=== PATIENT | male | born 1950 | race Caucasian/White ===

== ENCOUNTER 2022-11-10 09:39 | Inpatient (IN) | payer OTHER ==
[2022-11-10] MEDS ORDERED: Acetaminophen 325 MG TAB PO PRN (13:55)
[2022-11-10] MEDS ORDERED: oxyCODONE 5 MG TAB PO PRN (13:56)
[2022-11-10] MEDS ORDERED: Montelukast Sodium 10 mg Tablet PO PRN (13:56)
[2022-11-10] MEDS ORDERED: Ondansetron ODT 4 MG TAB SL PRN (13:59)
[2022-11-10] MEDS ORDERED: Senokot S 8.6-50 MG TAB PO PRN (13:59)
[2022-11-10] MEDS ORDERED: Bisacodyl 5 MG TAB PO PRN (13:59)
[2022-11-10] MEDS ORDERED: CEFAZOLIN 2 GM IVPB SCH (14:00)
[2022-11-10] MEDS ORDERED: Polyethylene Glycol OPTH DROP 15 ML BOT EA EYE PRN (16:20)
[2022-11-10] MEDS ORDERED: Diclofenac 1% 100 GM Topical GEL TP PRN (16:26)
[2022-11-10] MEDS ORDERED: CEFAZOLIN 2 GM in Sodium Chloride 0.9% 100 ML IVPB SCH ×2 (16:30→22:00)
[2022-11-10] MEDS ORDERED: CEFAZOLIN 1 GM in Sodium Chloride 0.9% 100 ML IVPB SCH ×2 (16:45→17:15)
[2022-11-10] MEDS: oxyCODONE 5 MG TAB PO PRN (16:50)
[2022-11-10] MEDS ORDERED: Ampicillin 2 GM VIAL IVPB SCH (17:00)
[2022-11-10] MEDS: Acetaminophen 325 MG TAB PO PRN (17:49)
[2022-11-10] MEDS: Ampicillin 2 GM in Sodium Chloride 0.9% 100 ML IVPB SCH ×2 (18:13→21:20)
[2022-11-10] MEDS: Enoxaparin 120 MG/0.8 ML SYRINGE SC SCH (20:51)
[2022-11-10] MEDS: Tamsulosin HCl 0.4 MG CAP PO SCH (20:52)
[2022-11-10] MEDS: Sacubitril 49 MG/Valsartan 51 MG TABLET PO SCH (20:52)
[2022-11-10] MEDS: Citalopram 20 MG TAB PO SCH (20:52)
[2022-11-10] MEDS: Atorvastatin Calcium 40 MG TAB PO SCH (20:53)
[2022-11-10] MEDS: Rifampin 300 MG CAP PO SCH (20:53)
[2022-11-10] MEDS: CEFAZOLIN 1 GM in Sodium Chloride 0.9% 100 ML IVPB SCH ×2 (22:03)
[2022-11-11] MEDS: Ampicillin 2 GM in Sodium Chloride 0.9% 100 ML IVPB SCH ×6 (01:02→21:13)
[2022-11-11 05:56] LABS: #Eosinphils 0.3 thou/uL (0.0-0.7); #Lymphocytes 0.7 thou/uL (1.20-3.40); #Monocytes 0.4 thou/uL (0.11-0.59); #Neutrophils 2.1 thou/uL (1.40-6.50); %Eosinophils 7.7 % (0.0-10.0); %Lymphocytes 20.6 % (21.0-51.0); %Monocytes 10.7 % (0.0-10.0); Hematocrit 33.3 % (42.0-52.0); Hemoglobin 10.5 g/dL (14.0-18.0); Mean Corpuscular HGB CONC 31.5 g/dL (32.0-36.0); Mean Corpuscular Hemoglobin 31.9 pg (27.0-31.0); Mean Platelet Volume 5.7 fL (7.4-10.4); Platelet Count 200 10x3/uL (130-400); RBC Distribution Width 16.4 % (11.5-14.5); Red Blood Cell (RBC) Count 3.29 mill/uL (4.70-6.10); White Blood Cell (WBC) Count 3.5 10x3/uL (4.8-10.8)
[2022-11-11] MEDS: CEFAZOLIN 1 GM in Sodium Chloride 0.9% 100 ML IVPB SCH ×6 (06:07→21:53)
[2022-11-11 06:15] LABS: ALT (SGPT) 7 U/L (8-55); AST (SGOT) 9 U/L (5-34); Albumin 2.9 g/dL (3.4-4.8); Alkaline Phosphatase 114 U/L (40-110); Anion Gap 15 mmol/L (10-20); BUN (Urea Nitrogen) 5 mg/dL (8.4-25.7); Bilirubin, Total 0.2 mg/dL (0.2-1.2); Calc. Creatinine Clearance 198 mL/min (70-130); Calcium 8.4 mg/dL (7.8-10.44); Carbon Dioxide 23 mmol/L (23-31); Chloride 107 mmol/L (98-107); Estimated GFR 106; Globulin 2.5 g/dL (2.4-3.5); Glucose 95 mg/dL (83-110); Potassium 3.7 mmol/L (3.5-5.1); Protein, Total 5.4 g/dL (5.8-8.1); Sodium 141 mmol/L (136-145)
[2022-11-11] MEDS: Acetaminophen 325 MG TAB PO PRN (07:49)
[2022-11-11] MEDS: Rifampin 300 MG CAP PO SCH ×2 (07:50→21:31)
[2022-11-11] MEDS: Sacubitril 49 MG/Valsartan 51 MG TABLET PO SCH ×2 (07:51→21:31)
[2022-11-11] MEDS: Aspirin 81 mg Enteric Coated Tablet PO SCH (07:51)
[2022-11-11] MEDS: Nitrofurantoin Monohyd/M-Cryst 100 MG CAP PO SCH (07:51)
[2022-11-11] MEDS: Enoxaparin 120 MG/0.8 ML SYRINGE SC SCH ×2 (09:07→21:32)
[2022-11-11] MEDS: oxyCODONE 5 MG TAB PO PRN ×2 (11:10→17:16)
[2022-11-11] MEDS: Atorvastatin Calcium 40 MG TAB PO SCH (21:31)
[2022-11-11] MEDS: Citalopram 20 MG TAB PO SCH (21:31)
[2022-11-11] MEDS: Tamsulosin HCl 0.4 MG CAP PO SCH (21:31)
[2022-11-12] MEDS: Ampicillin 2 GM in Sodium Chloride 0.9% 100 ML IVPB SCH ×6 (00:58→21:04)
[2022-11-12] MEDS: CEFAZOLIN 1 GM in Sodium Chloride 0.9% 100 ML IVPB SCH ×6 (05:42→22:18)
[2022-11-12] MEDS: Enoxaparin 120 MG/0.8 ML SYRINGE SC SCH ×2 (08:32→21:04)
[2022-11-12] MEDS: Sacubitril 49 MG/Valsartan 51 MG TABLET PO SCH ×2 (08:33→21:05)
[2022-11-12] MEDS: Nitrofurantoin Monohyd/M-Cryst 100 MG CAP PO SCH (08:33)
[2022-11-12] MEDS: Aspirin 81 mg Enteric Coated Tablet PO SCH (08:33)
[2022-11-12] MEDS: Saccharomyces boulardii 250 MG CAP PO SCH (08:33)
[2022-11-12] MEDS: Rifampin 300 MG CAP PO SCH ×2 (08:33→21:05)
[2022-11-12] MEDS: oxyCODONE 5 MG TAB PO PRN ×2 (08:36→17:18)
[2022-11-12] MEDS ORDERED: CEFAZOLIN 1 GM VIAL ONE ×2 (20:27→20:28)
[2022-11-12] MEDS ORDERED: Ampicillin 2 GM VIAL ONE (20:27)
[2022-11-12] MEDS: Tamsulosin HCl 0.4 MG CAP PO SCH (21:05)
[2022-11-12] MEDS: Citalopram 20 MG TAB PO SCH (21:05)
[2022-11-12] MEDS: Atorvastatin Calcium 40 MG TAB PO SCH (21:05)
[2022-11-12] MEDS ORDERED: Calcium Carbonate 500 MG ChewTAB PO PRN (22:30)
[2022-11-13] MEDS ORDERED: Calcium Carbonate 500 MG ChewTAB PO PRN (00:56)
[2022-11-13] MEDS: Ampicillin 2 GM in Sodium Chloride 0.9% 100 ML IVPB SCH ×6 (01:00→20:38)
[2022-11-13] MEDS ORDERED: Sodium Chloride 0.9% 100 ML ONE (01:47)
[2022-11-13] MEDS: CEFAZOLIN 1 GM in Sodium Chloride 0.9% 100 ML IVPB SCH ×6 (05:31→21:43)
[2022-11-13] MEDS: Aspirin 81 mg Enteric Coated Tablet PO SCH (08:09)
[2022-11-13] MEDS: Sacubitril 49 MG/Valsartan 51 MG TABLET PO SCH ×2 (08:09→20:40)
[2022-11-13] MEDS: Saccharomyces boulardii 250 MG CAP PO SCH (08:09)
[2022-11-13] MEDS: Rifampin 300 MG CAP PO SCH ×2 (08:09→20:40)
[2022-11-13] MEDS: Nitrofurantoin Monohyd/M-Cryst 100 MG CAP PO SCH (08:10)
[2022-11-13] MEDS: Enoxaparin 120 MG/0.8 ML SYRINGE SC SCH ×2 (08:10→20:39)
[2022-11-13] MEDS: oxyCODONE 5 MG TAB PO PRN ×2 (08:17→19:50)
[2022-11-13] MEDS: Acetaminophen 325 MG TAB PO PRN (11:09)
[2022-11-13] MEDS: Tamsulosin HCl 0.4 MG CAP PO SCH (20:40)
[2022-11-13] MEDS: Atorvastatin Calcium 40 MG TAB PO SCH (20:40)
[2022-11-13] MEDS: Citalopram 20 MG TAB PO SCH (20:40)
[2022-11-14] MEDS: Ampicillin 2 GM in Sodium Chloride 0.9% 100 ML IVPB SCH ×6 (00:22→20:56)
[2022-11-14] MEDS: CEFAZOLIN 1 GM in Sodium Chloride 0.9% 100 ML IVPB SCH ×6 (05:27→21:34)
[2022-11-14] MEDS: oxyCODONE 5 MG TAB PO PRN ×2 (07:52→17:30)
[2022-11-14] MEDS: Enoxaparin 120 MG/0.8 ML SYRINGE SC SCH ×2 (07:53→20:57)
[2022-11-14] MEDS: Rifampin 300 MG CAP PO SCH ×2 (07:53→20:58)
[2022-11-14] MEDS: Sacubitril 49 MG/Valsartan 51 MG TABLET PO SCH ×2 (07:53→20:58)
[2022-11-14] MEDS: Aspirin 81 mg Enteric Coated Tablet PO SCH (07:53)
[2022-11-14] MEDS: Saccharomyces boulardii 250 MG CAP PO SCH (07:53)
[2022-11-14] MEDS: Nitrofurantoin Monohyd/M-Cryst 100 MG CAP PO SCH (07:53)
[2022-11-14] MEDS: Acetaminophen 325 MG TAB PO PRN ×2 (09:36→21:11)
[2022-11-14] MEDS: Citalopram 20 MG TAB PO SCH (20:57)
[2022-11-14] MEDS: Tamsulosin HCl 0.4 MG CAP PO SCH (20:58)
[2022-11-14] MEDS: Atorvastatin Calcium 40 MG TAB PO SCH (20:58)
[2022-11-15] MEDS: Ampicillin 2 GM in Sodium Chloride 0.9% 100 ML IVPB SCH ×6 (00:39→21:36)
[2022-11-15] MEDS: oxyCODONE 5 MG TAB PO PRN ×2 (02:47→08:56)
[2022-11-15] MEDS: CEFAZOLIN 1 GM in Sodium Chloride 0.9% 100 ML IVPB SCH ×6 (05:06→22:18)
[2022-11-15 06:13] LABS: #Eosinphils 0.1 thou/uL (0.0-0.7); #Lymphocytes 0.7 thou/uL (1.20-3.40); #Monocytes 0.3 thou/uL (0.11-0.59); #Neutrophils 1.7 thou/uL (1.40-6.50); %Basophils 1.4 % (0.0-1.0); %Eosinophils 4.8 % (0.0-10.0); %Lymphocytes 23.6 % (21.0-51.0); %Monocytes 10.6 % (0.0-10.0); %Neutrophils 59.6 % (42.0-75.0); Hematocrit 32.7 % (42.0-52.0); Hemoglobin 10.2 g/dL (14.0-18.0); Mean Corpuscular HGB CONC 31.2 g/dL (32.0-36.0); Mean Corpuscular Hemoglobin 31.8 pg (27.0-31.0); Mean Platelet Volume 5.9 fL (7.4-10.4); Platelet Count 198 10x3/uL (130-400); RBC Distribution Width 16.3 % (11.5-14.5); White Blood Cell (WBC) Count 2.9 10x3/uL (4.8-10.8)
[2022-11-15 06:21] LABS: ALT (SGPT) 8 U/L (8-55); AST (SGOT) 8 U/L (5-34); Albumin 2.9 g/dL (3.4-4.8); Alkaline Phosphatase 117 U/L (40-110); Anion Gap 12 mmol/L (10-20); BUN (Urea Nitrogen) 7 mg/dL (8.4-25.7); Bilirubin, Total 0.2 mg/dL (0.2-1.2); CRP (Inflammatory) 1.56 mg/dL (= or < 0.5); Calc. Creatinine Clearance 190 mL/min (70-130); Calcium 8.3 mg/dL (7.8-10.44); Carbon Dioxide 24 mmol/L (23-31); Chloride 109 mmol/L (98-107); Estimated GFR 106; Globulin 2.3 g/dL (2.4-3.5); Glucose 86 mg/dL (83-110); Potassium 3.5 mmol/L (3.5-5.1); Protein, Total 5.2 g/dL (5.8-8.1); Sodium 141 mmol/L (136-145)
[2022-11-15] MEDS: Acetaminophen 325 MG TAB PO PRN (07:59)
[2022-11-15] MEDS: Rifampin 300 MG CAP PO SCH ×2 (08:00→21:37)
[2022-11-15] MEDS: Saccharomyces boulardii 250 MG CAP PO SCH (08:00)
[2022-11-15] MEDS: Nitrofurantoin Monohyd/M-Cryst 100 MG CAP PO SCH (08:00)
[2022-11-15] MEDS: Sacubitril 49 MG/Valsartan 51 MG TABLET PO SCH ×2 (08:00→21:37)
[2022-11-15] MEDS: Aspirin 81 mg Enteric Coated Tablet PO SCH (08:00)
[2022-11-15] MEDS: Enoxaparin 120 MG/0.8 ML SYRINGE SC SCH ×2 (08:01→21:37)
[2022-11-15] MEDS ORDERED: oxyCODONE 5 MG TAB PO SCH (11:00)
[2022-11-15] MEDS: oxyCODONE 5 MG TAB PO SCH (18:25)
[2022-11-15] MEDS: Citalopram 20 MG TAB PO SCH (21:36)
[2022-11-15] MEDS: Atorvastatin Calcium 40 MG TAB PO SCH (21:36)
[2022-11-15] MEDS: Tamsulosin HCl 0.4 MG CAP PO SCH (21:48)
[2022-11-16] MEDS: oxyCODONE 5 MG TAB PO SCH ×5 (00:48→23:15)
[2022-11-16] MEDS: Ampicillin 2 GM in Sodium Chloride 0.9% 100 ML IVPB SCH ×6 (00:49→21:07)
[2022-11-16] MEDS: CEFAZOLIN 1 GM in Sodium Chloride 0.9% 100 ML IVPB SCH ×6 (05:32→21:42)
[2022-11-16] MEDS: Enoxaparin 120 MG/0.8 ML SYRINGE SC SCH ×2 (08:42→21:08)
[2022-11-16] MEDS: Nitrofurantoin Monohyd/M-Cryst 100 MG CAP PO SCH (08:43)
[2022-11-16] MEDS: Rifampin 300 MG CAP PO SCH ×2 (08:43→21:08)
[2022-11-16] MEDS: Saccharomyces boulardii 250 MG CAP PO SCH (08:44)
[2022-11-16] MEDS: Sacubitril 49 MG/Valsartan 51 MG TABLET PO SCH ×2 (08:44→21:08)
[2022-11-16] MEDS: Aspirin 81 mg Enteric Coated Tablet PO SCH (08:44)
[2022-11-16] MEDS: Acetaminophen 325 MG TAB PO PRN (14:28)
[2022-11-16] MEDS: Tamsulosin HCl 0.4 MG CAP PO SCH (21:07)
[2022-11-16] MEDS: Citalopram 20 MG TAB PO SCH (21:07)
[2022-11-16] MEDS: Atorvastatin Calcium 40 MG TAB PO SCH (21:08)
[2022-11-17] MEDS: Ampicillin 2 GM in Sodium Chloride 0.9% 100 ML IVPB SCH ×6 (01:08→21:13)
[2022-11-17] MEDS: oxyCODONE 5 MG TAB PO SCH ×2 (05:24→12:00)
[2022-11-17] MEDS: CEFAZOLIN 1 GM in Sodium Chloride 0.9% 100 ML IVPB SCH ×6 (06:06→21:52)
[2022-11-17] MEDS ORDERED: CEFAZOLIN 1 GM VIAL ONE ×2 (07:39)
[2022-11-17] MEDS ORDERED: Ampicillin 2 GM VIAL ONE (07:39)
[2022-11-17] MEDS: Enoxaparin 120 MG/0.8 ML SYRINGE SC SCH ×2 (09:27→21:13)
[2022-11-17] MEDS: Sacubitril 49 MG/Valsartan 51 MG TABLET PO SCH ×2 (09:28→21:13)
[2022-11-17] MEDS: Aspirin 81 mg Enteric Coated Tablet PO SCH (09:29)
[2022-11-17] MEDS: Nitrofurantoin Monohyd/M-Cryst 100 MG CAP PO SCH (09:29)
[2022-11-17] MEDS: Saccharomyces boulardii 250 MG CAP PO SCH (09:30)
[2022-11-17] MEDS: Rifampin 300 MG CAP PO SCH ×2 (10:19→21:15)
[2022-11-17] MEDS: oxyCODONE ER 10 MG TAB PO SCH ×4 (12:49→21:14)
[2022-11-17] MEDS: Acetaminophen 325 MG TAB PO PRN (14:23)
[2022-11-17] MEDS: Atorvastatin Calcium 40 MG TAB PO SCH (21:13)
[2022-11-17] MEDS: Citalopram 20 MG TAB PO SCH (21:13)
[2022-11-17] MEDS: Tamsulosin HCl 0.4 MG CAP PO SCH (21:14)
[2022-11-18] MEDS: Ampicillin 2 GM in Sodium Chloride 0.9% 100 ML IVPB SCH ×6 (00:58→21:39)
[2022-11-18] MEDS ORDERED: Sodium Chloride 0.9% 100 ML ONE (05:36)
[2022-11-18] MEDS ORDERED: Sodium Chloride 0.9% 200 ML ONE (05:36)
[2022-11-18] MEDS: CEFAZOLIN 2 GM in Sodium Chloride 0.9% 100 ML IVPB SCH ×3 (06:06→22:38)
[2022-11-18] MEDS ORDERED: Ibuprofen 200 MG TAB ONE (09:29)
[2022-11-18] MEDS: oxyCODONE ER 10 MG TAB PO SCH ×2 (09:29→21:39)
[2022-11-18] MEDS: Aspirin 81 mg Enteric Coated Tablet PO SCH (09:30)
[2022-11-18] MEDS: Sacubitril 49 MG/Valsartan 51 MG TABLET PO SCH ×2 (09:31→21:39)
[2022-11-18] MEDS: Nitrofurantoin Monohyd/M-Cryst 100 MG CAP PO SCH (09:31)
[2022-11-18] MEDS: Rifampin 300 MG CAP PO SCH ×2 (09:31→21:40)
[2022-11-18] MEDS: Saccharomyces boulardii 250 MG CAP PO SCH (09:31)
[2022-11-18] MEDS: Enoxaparin 120 MG/0.8 ML SYRINGE SC SCH ×2 (09:32→21:38)
[2022-11-18] MEDS: Citalopram 20 MG TAB PO SCH (21:39)
[2022-11-18] MEDS: Tamsulosin HCl 0.4 MG CAP PO SCH (21:40)
[2022-11-18] MEDS: Atorvastatin Calcium 40 MG TAB PO SCH (21:49)
[2022-11-19] MEDS: Ampicillin 2 GM in Sodium Chloride 0.9% 100 ML IVPB SCH ×6 (01:41→21:39)
[2022-11-19] MEDS: CEFAZOLIN 2 GM in Sodium Chloride 0.9% 100 ML IVPB SCH (06:15)
[2022-11-19] MEDS ORDERED: Ampicillin 2 GM VIAL ONE ×3 (07:31→07:33)
[2022-11-19] MEDS: oxyCODONE ER 10 MG TAB PO SCH ×2 (08:00→21:40)
[2022-11-19] MEDS: Nitrofurantoin Monohyd/M-Cryst 100 MG CAP PO SCH (08:45)
[2022-11-19] MEDS: Sacubitril 49 MG/Valsartan 51 MG TABLET PO SCH ×2 (08:45→21:40)
[2022-11-19] MEDS: Aspirin 81 mg Enteric Coated Tablet PO SCH (08:45)
[2022-11-19] MEDS: Saccharomyces boulardii 250 MG CAP PO SCH (08:46)
[2022-11-19] MEDS: Enoxaparin 120 MG/0.8 ML SYRINGE SC SCH ×2 (09:02→21:38)
[2022-11-19] MEDS: Rifampin 300 MG CAP PO SCH ×2 (09:45→21:40)
[2022-11-19] MEDS: CEFAZOLIN 1 GM in Sodium Chloride 0.9% 100 ML IVPB SCH ×4 (13:36→22:38)
[2022-11-19] MEDS: Citalopram 20 MG TAB PO SCH (21:40)
[2022-11-19] MEDS: Atorvastatin Calcium 40 MG TAB PO SCH (21:40)
[2022-11-19] MEDS: Tamsulosin HCl 0.4 MG CAP PO SCH (21:40)
[2022-11-20] MEDS: Ampicillin 2 GM in Sodium Chloride 0.9% 100 ML IVPB SCH ×6 (01:14→20:31)
[2022-11-20] MEDS: CEFAZOLIN 1 GM in Sodium Chloride 0.9% 100 ML IVPB SCH ×6 (06:01→21:27)
[2022-11-20] MEDS: Saccharomyces boulardii 250 MG CAP PO SCH (07:35)
[2022-11-20] MEDS: oxyCODONE ER 10 MG TAB PO SCH ×2 (07:36→20:29)
[2022-11-20] MEDS: Aspirin 81 mg Enteric Coated Tablet PO SCH (07:36)
[2022-11-20] MEDS: Sacubitril 49 MG/Valsartan 51 MG TABLET PO SCH ×2 (07:36→20:29)
[2022-11-20] MEDS: Nitrofurantoin Monohyd/M-Cryst 100 MG CAP PO SCH (07:36)
[2022-11-20] MEDS: Enoxaparin 120 MG/0.8 ML SYRINGE SC SCH ×2 (07:37→20:29)
[2022-11-20] MEDS: Rifampin 300 MG CAP PO SCH ×2 (09:55→21:25)
[2022-11-20] MEDS: Acetaminophen 325 MG TAB PO PRN ×2 (10:02→20:30)
[2022-11-20] MEDS: oxyCODONE 5 MG TAB PO PRN (18:20)
[2022-11-20] MEDS: Tamsulosin HCl 0.4 MG CAP PO SCH (20:29)
[2022-11-20] MEDS: Citalopram 20 MG TAB PO SCH (20:31)
[2022-11-20] MEDS: Atorvastatin Calcium 40 MG TAB PO SCH (20:34)
[2022-11-21] MEDS: Ampicillin 2 GM in Sodium Chloride 0.9% 100 ML IVPB SCH ×6 (01:04→20:24)
[2022-11-21] MEDS ORDERED: Sodium Chloride 0.9% 300 ML ONE (04:11)
[2022-11-21] MEDS ORDERED: Ampicillin 2 GM VIAL ONE (04:54)
[2022-11-21] MEDS: CEFAZOLIN 1 GM in Sodium Chloride 0.9% 100 ML IVPB SCH ×6 (04:59→21:09)
[2022-11-21] MEDS ORDERED: Sodium Chloride 0.9% 100 ML ONE (07:48)
[2022-11-21] MEDS: oxyCODONE ER 10 MG TAB PO SCH ×2 (08:00→20:22)
[2022-11-21] MEDS: Saccharomyces boulardii 250 MG CAP PO SCH (08:31)
[2022-11-21] MEDS: Nitrofurantoin Monohyd/M-Cryst 100 MG CAP PO SCH (08:31)
[2022-11-21] MEDS: Sacubitril 49 MG/Valsartan 51 MG TABLET PO SCH ×2 (08:31→20:23)
[2022-11-21] MEDS: Aspirin 81 mg Enteric Coated Tablet PO SCH (08:31)
[2022-11-21] MEDS: Enoxaparin 120 MG/0.8 ML SYRINGE SC SCH ×2 (08:38→20:24)
[2022-11-21] MEDS: Rifampin 300 MG CAP PO SCH ×2 (09:17→21:08)
[2022-11-21] MEDS: oxyCODONE 5 MG TAB PO PRN ×2 (12:49→20:21)
[2022-11-21] MEDS ORDERED: Dextrose 5 %-0.45 % NaCl 1,000 ML IV SCH (14:45)
[2022-11-21] MEDS: Citalopram 20 MG TAB PO SCH (20:24)
[2022-11-21] MEDS: Atorvastatin Calcium 40 MG TAB PO SCH (20:24)
[2022-11-21] MEDS: Tamsulosin HCl 0.4 MG CAP PO SCH (20:25)
[2022-11-22] MEDS: Ampicillin 2 GM in Sodium Chloride 0.9% 100 ML IVPB SCH ×4 (00:34→11:52)
[2022-11-22] MEDS: CEFAZOLIN 1 GM in Sodium Chloride 0.9% 100 ML IVPB SCH ×4 (05:02→12:30)
[2022-11-22 06:10] LABS: #Eosinphils 0.2 thou/uL (0.0-0.7); #Lymphocytes 0.8 thou/uL (1.20-3.40); #Monocytes 0.4 thou/uL (0.11-0.59); #Neutrophils 2.3 thou/uL (1.40-6.50); %Eosinophils 4.5 % (0.0-10.0); %Lymphocytes 20.8 % (21.0-51.0); %Monocytes 11.3 % (0.0-10.0); %Neutrophils 62.3 % (42.0-75.0); Hematocrit 35.6 % (42.0-52.0); Hemoglobin 11.1 g/dL (14.0-18.0); Mean Corpuscular Hemoglobin 31.5 pg (27.0-31.0); Mean Platelet Volume 5.8 fL (7.4-10.4); Platelet Count 201 10x3/uL (130-400); RBC Distribution Width 15.1 % (11.5-14.5); White Blood Cell (WBC) Count 3.7 10x3/uL (4.8-10.8)
[2022-11-22 06:30] LABS: ALT (SGPT) 9 U/L (8-55); AST (SGOT) 10 U/L (5-34); Alkaline Phosphatase 105 U/L (40-110); BUN (Urea Nitrogen) 8 mg/dL (8.4-25.7); Bilirubin, Total 0.2 mg/dL (0.2-1.2); Calc. Creatinine Clearance 175 mL/min (70-130); Calcium 8.4 mg/dL (7.6-10.4); Carbon Dioxide 22 mmol/L (23-31); Chloride 109 mmol/L (98-107); Estimated GFR 105; Globulin 2.4 g/dL (2.4-3.5); Glucose 92 mg/dL (83-110); Potassium 3.7 mmol/L (3.5-5.1); Protein, Total 5.4 g/dL (5.8-8.1); Sodium 139 mmol/L (136-145)
[2022-11-22 06:31] LABS: CRP (Inflammatory) 2.58 mg/dL (= or < 0.5)
[2022-11-22] MEDS: Enoxaparin 120 MG/0.8 ML SYRINGE SC SCH (07:44)
[2022-11-22] MEDS: Aspirin 81 mg Enteric Coated Tablet PO SCH (07:44)
[2022-11-22] MEDS: Saccharomyces boulardii 250 MG CAP PO SCH (07:44)
[2022-11-22] MEDS: oxyCODONE ER 10 MG TAB PO SCH (07:45)
[2022-11-22] MEDS: Sacubitril 49 MG/Valsartan 51 MG TABLET PO SCH (07:52)
[2022-11-22] MEDS: Rifampin 300 MG CAP PO SCH (08:19)
[2022-11-22 09:09] VITALS: TEMP 98.1
[2022-11-22 11:34] VITALS: BMI 32.0
[2022-11-22 13:22] VITALS: BP 110/63
[2022-11-22] MEDS: oxyCODONE 5 MG TAB PO PRN (13:38)
== END 2022-11-22 17:00 | disposition short-term general hospital (02) | DRG 560 ==
LOC: NAV ACUTE 11:42
PROVIDERS: ADMIT Family Medicine; ATTEND Family Medicine
DX: T84.52XA Infection and inflammatory reaction due to internal left hip prosthesis, initial encounter (principal); C85.10 Unspecified B-cell lymphoma, unspecified site; T81.31XA Disruption of external operation (surgical) wound, not elsewhere classified, initial encounter; F41.9 Anxiety disorder, unspecified; K21.9 Gastro-esophageal reflux disease without esophagitis; I73.9 Peripheral vascular disease, unspecified; I50.9 Heart failure, unspecified; Z96.642 Presence of left artificial hip joint; R33.9 Retention of urine, unspecified; I11.0 Hypertensive heart disease with heart failure; I25.10 Atherosclerotic heart disease of native coronary artery without angina pectoris; Z66 Do not resuscitate; Y83.8 Other surgical procedures as the cause of abnormal reaction of the patient, or of later complication, without mention of misadventure at the time of the procedure; G89.29 Other chronic pain; Z86.718 Personal history of other venous thrombosis and embolism; I25.2 Old myocardial infarction; Z98.890 Other specified postprocedural states; Z87.891 Personal history of nicotine dependence
CPT/HCPCS: 36415; 36416; 80053; 85025; 85652; 86140; 97602; J0290; J0690; J1642; J1650; J3490